=== PATIENT | male | born 1945 | race Two or more races ===

== ENCOUNTER 2022-07-18 14:46 | Inpatient (IN) | payer OTHER ==
[~2022-07-18] VITALS: Ht 167.6 cm; Wt 85.0 kg
[2022-07-18 15:27] VITALS: BP 141/71
[2022-07-18 15:50] LABS: Albumin 3.7 g/dL (3.4-5.0); BUN/Creatinine Ratio 17.7; Calcium 9.1 mg/dL (8.5-10.1)
[2022-07-18 15:53] LABS: Bilirubin, Total 0.5 mg/dL (0.2-1.0); Total Protein 7.8 g/dL (6.4-8.2)
[2022-07-18 15:55] LABS: Basophils # (auto) 0 10 ^3/uL (0-0.2); Basophils % (auto) 0.9 % (0.0-2.0); Eosinophils # (auto) 0.4 10 ^3/uL (0-0.8); Eosinophils % (auto) 7.6 % (0.0-7.0); Hematocrit 43.7 % (41.0-53.0); Hemoglobin 15.4 g/dL (13.5-17.5); Lymphocytes # (auto) 1.4 10 ^3/uL (0.4-5.4); Lymphocytes % (auto) 28.2 % (10.0-50.0); Mean Corpuscular Hemoglobin 33.7 pg (28.0-32.0); Mean Corpuscular Hgb Conc. 35.3 g/dL (32.0-36.0); Mean Corpuscular Volume 95.4 fL (80.0-100.0); Monocytes # (auto) 0.8 10 ^3/uL (0-1.3); Monocytes % (auto) 15.9 % (0.0-12.0); Neutrophils # (auto) 2.4 10 ^3/uL (1.6-8.6); Neutrophils % (auto) 47.4 % (37.0-80.0); Nucleated Red Blood Cells % 0.3 %; Red Blood Cells 4.58 10^6/uL (4.5-5.90); Red Cell Distribution Width 13.7 % (11.8-14.3); White Blood Cell 5.1 10^3/uL (4.4-10.8)
[2022-07-18] MEDS ORDERED: ASPirin 325 MG TAB PO ONE (16:45)
[2022-07-18] MEDS ORDERED: AZITHROMYCIN 500MG/ 250ML 250 ML IV ONE (17:45)
[2022-07-18] MEDS ORDERED: cefTRIAXone 1GM/50ML D5W 50 ML IV ONE (17:45)
[2022-07-18] MEDS ORDERED: HYDROmorphone HCL 2 MG/ML VL/or syr IV PRN (21:15)
[2022-07-18] MEDS ORDERED: HYDROcodone-ACET 5/325MG TAB PO PRN (21:15)
[2022-07-18] MEDS ORDERED: ONDANSETRON HCL 4 MG/2 ML VIAL IV PRN (21:15)
[2022-07-18] MEDS ORDERED: ACETAMINOPHEN 500 MG TAB PO PRN (21:15)
[2022-07-18] MEDS ORDERED: MAALOX PLUS or MAALOX 30 ML PO PRN (21:15)
[2022-07-18] MEDS ORDERED: LORazepam 0.5 MG TAB PO PRN (21:15)
[2022-07-18] MEDS ORDERED: DOCUSATE SOD 100 MG CAP PO PRN (21:15)
[2022-07-18] MEDS ORDERED: ACETAMINOPHEN 325 MG TAB PO PRN (21:15)
[2022-07-18] MEDS ORDERED: MORPHINE SULFATE INJ 2 MG/ml SYRG IV PRN (21:15)
[2022-07-18] MEDS ORDERED: SODIUM CHLORIDE 0.9% 1,000 ML IV SCH (21:15)
[2022-07-18] MEDS ORDERED: ALBUTEROL SULF HFA 90MCG INH 200DOSE IN PRN (21:15)
[2022-07-19] MEDS ORDERED: ENOXAPARIN SOD 40 MG/0.4 ML SYRINGE SC SCH (10:00)
[2022-07-19] MEDS ORDERED: ZINC SULFATE 220mg CAP or TAB PO SCH (10:00)
[2022-07-19] MEDS ORDERED: CHOLECALCIFEROL (VITD3) 2,000 UNIT CAP/TAB PO SCH (10:00)
[2022-07-19] MEDS ORDERED: ASCORBIC ACID 1,000 MG TAB PO SCH (10:00)
[2022-07-19] MEDS ORDERED: DexAMETHasone SOD PHOS 10MG/1ML VIAL INJ IV SCH (10:00)
[2022-07-19] MEDS ORDERED: AZITHROMYCIN 500MG/ 250ML 250 ML IV SCH (10:00)
== END 2022-07-18 23:22 | disposition left against medical advice (07) | DRG 177 ==
LOC: ER 14:46 → TELE 21:17
PROVIDERS: ADMIT Hospitalist; ATTEND Hospitalist
DX: U07.1 COVID-19 (principal); I40.9 Acute myocarditis, unspecified; J12.82 Pneumonia due to coronavirus disease 2019; I24.9 Acute ischemic heart disease, unspecified; I10 Essential (primary) hypertension; Z53.29 Procedure and treatment not carried out because of patient's decision for other reasons
CPT/HCPCS: 36415; 71045; 80053; 83735; 84484; 85025; 85379; 85652; 86141; 87426; 93005; G0378; J0696